=== PATIENT | male | born 1990 | race Caucasian/White ===

== ENCOUNTER 2016-12-01 18:51 | Emergency (ER) | payer OTHER ==
[~2016-12-01] VITALS: Ht 175.3 cm; Wt 90.9 kg
[~2016-12-01 18:51] MED LIST: CEPH500 PO; DSS100 PO; PERCT10 PO
[2016-12-01] MEDS ORDERED: IBUPROFEN 800 MG TABLET PO ONE (19:15)
[2016-12-01 20:44] VITALS: BP 120/81
== END 2016-12-01 20:47 | disposition home or self-care (01) ==
LOC: EMS 18:54
DX: S82.832A Other fracture of upper and lower end of left fibula, initial encounter for closed fracture (principal); F17.210 Nicotine dependence, cigarettes, uncomplicated; W01.0XXA Fall on same level from slipping, tripping and stumbling without subsequent striking against object, initial encounter; Y93.89 Activity, other specified; Y92.89 Other specified places as the place of occurrence of the external cause; Y99.8 Other external cause status
CPT/HCPCS: 99284

== ENCOUNTER 2017-01-25 13:07 | Emergency (ER) | payer OTHER ==
[~2017-01-25] VITALS: Ht 175.3 cm; Wt 100.0 kg
[2017-01-25 18:30] VITALS: BP 129/85
== END 2017-01-25 19:04 | disposition home or self-care (01) ==
LOC: EMS 13:09
DX: S82.62XA Displaced fracture of lateral malleolus of left fibula, initial encounter for closed fracture (principal); F10.129 Alcohol abuse with intoxication, unspecified; F17.210 Nicotine dependence, cigarettes, uncomplicated; W19.XXXA Unspecified fall, initial encounter; Y93.89 Activity, other specified; Y92.480 Sidewalk as the place of occurrence of the external cause; Y99.8 Other external cause status
CPT/HCPCS: 99284

== ENCOUNTER 2020-12-20 07:03 | Emergency (ER) | payer OTHER ==
[~2020-12-20] VITALS: Ht 175.3 cm; Wt 90.9 kg
[2020-12-20] MEDS ORDERED: IBUPROFEN 600 MG TABLET PO ONE (08:15)
[2020-12-20] MEDS ORDERED: DOXYCYCLINE HYCLATE 100 MG TABLET PO ONE (08:15)
[2020-12-20 08:22] VITALS: BP 149/83
== END 2020-12-20 08:30 | disposition home or self-care (01) ==
LOC: EMS 07:52
DX: L03.114 Cellulitis of left upper limb (principal); M79.89 Other specified soft tissue disorders; Z87.891 Personal history of nicotine dependence
CPT/HCPCS: 99283

== ENCOUNTER 2021-11-26 14:19 | Emergency (ER) | payer OTHER ==
[~2021-11-26] VITALS: Ht 172.7 cm; Wt 86.4 kg
[2021-11-26] MEDS ORDERED: PERTUSS(ACELL),DIPH,TET VAC/PF 0.5 ML SYRINGE IM. ONE (15:15)
[2021-11-26] MEDS ORDERED: BACITRACIN 0.9 GM PACKET OINTMENT TP ONE (15:15)
[2021-11-26 15:24] LABS: BASOPHILS % (AUTO) 0.6 % (0.0-2.0); EOSINOPHILS % (AUTO) 0.1 % (1.0-6.0); HEMATOCRIT 44.1 % (41-53); HEMOGLOBIN 14.8 g/dL (13.5-17.5); LYMPHOCYTES # (AUTO) 0.9 K/uL (1.0-4.8); LYMPHOCYTES % (AUTO) 12.8 % (22.0-44.0); MEAN CORPUSCULAR HEMOGLOBIN 29.8 pg (26.0-34.0); MEAN CORPUSCULAR HGB CONC 33.6 G/dL (31.0-37.0); MEAN CORPUSCULAR VOLUME 89 fL (80-100); MONOCYTES # (AUTO) 0.5 K/uL (0.1-1.0); MONOCYTES % (AUTO) 6.6 % (2.0-9.0); NEUTROPHILS # (AUTO) 5.9 K/uL (1.8-7.7); NEUTROPHILS % (AUTO) 79.9 % (40.0-70.0); RED BLOOD CELL COUNT(AUTO) 4.96 MIL/uL (4.50-5.90); RED CELL DISTRIBUTION WIDTH 14.9 % (11.5-14.5)
[2021-11-26] MEDS ORDERED: LORazepam 2 MG/ML VIAL IM ONE (15:30)
[2021-11-26] MEDS ORDERED: HALOPERIDOL LACTATE 5 MG/ML VIAL IM ONE (15:30)
[2021-11-26] MEDS ORDERED: DiphenhydrAMINE HCL 50 MG/ML VIAL IM ONE (15:30)
[2021-11-26 15:33] LABS: ANION GAP 10 mmol/L (8-16); CALCIUM, TOTAL 7.8 mg/dL (8.8-10.5); CARBON DIOXIDE 27 mmol/L (22-29); CHLORIDE 104 mmol/L (98-107); CREATININE 0.77 mg/dL (0.60-1.30); GLOMERULAR FILTR. RATE CALC > 60 mL/min (>60); GLUCOSE,RANDOM 121 mg/dL (70-110); POTASSIUM 3.6 mmol/L (3.5-5.1); SODIUM SERUM 141 mmol/L (136-145); UREA NITROGEN, BLOOD 11 mg/dL (7-18)
[2021-11-26 15:36] LABS: AMPHET/METH SCREEN,URINE NEGATIVE (NEGATIVE); BARBITURATE SCREEN, URINE NEGATIVE (NEGATIVE); BENZODIAZEPINES SCREEN,URINE NEGATIVE (NEGATIVE); CANNABINOID SCREEN,URINE NEGATIVE (NEGATIVE); COCAINE SCREEN,URINE NEGATIVE (NEGATIVE); METHADONE SCREEN, URINE NEGATIVE (NEGATIVE); OPIATE SCREEN,URINE NEGATIVE (NEGATIVE); PHENCYCLIDINE SCREEN,URINE NEGATIVE (NEGATIVE)
[2021-11-26 15:39] LABS: ALANINE AMINOTRANSFERASE 105 U/L (12-78); ALBUMIN 3.4 g/dL (3.4-5.0); ALKALINE PHOSPHATASE 73 U/L (46-116); ASPARTATE AMINOTRANSFERASE 309 U/L (15-37); BILIRUBIN,TOTAL 0.5 mg/dL (0.1-1.0)
[2021-11-26 15:45] LABS: PLATELET COUNT (AUTO) 87 K/uL (150-450)
[2021-11-26 18:30] LABS: COVID AG,FIA SOURCE NASOPHARYNGEAL
[2021-11-26] MEDS ORDERED: LORazepam 2 MG/ML VIAL IVP ONE (19:00)
[2021-11-27] VITALS: BP 118/65
[2021-11-27] MEDS ORDERED: CEPH-558 PO (01:00)
== END 2021-11-27 01:00 | disposition home or self-care (01) ==
LOC: EMS 14:21
DX: S02.2XXA Fracture of nasal bones, initial encounter for closed fracture (principal); G92.9 Unspecified toxic encephalopathy; R45.851 Suicidal ideations; K70.30 Alcoholic cirrhosis of liver without ascites; F10.129 Alcohol abuse with intoxication, unspecified; Y90.8 Blood alcohol level of 240 mg/100 ml or more; Z87.891 Personal history of nicotine dependence; Z20.822 Contact with and (suspected) exposure to COVID-19; W22.01XA Walked into wall, initial encounter; Y93.89 Activity, other specified; Y92.89 Other specified places as the place of occurrence of the external cause; Y99.8 Other external cause status
CPT/HCPCS: 36415; 70450; 70486; 80053; 80307; 85025; 87426; 90471; 90715; 96372; 96374; 99285; G0480; J1200; J1630; J2060

== ENCOUNTER 2022-11-25 10:46 | Emergency (ER) | payer OTHER ==
[~2022-11-25] VITALS: Ht 175.3 cm; Wt 88.6 kg
[~2022-11-25 10:46] MED LIST changes: -CEPH500 PO; -DSS100 PO; +PANT-31 PO; -PERCT10 PO
[2022-11-25 11:11] VITALS: BP 159/88
[2022-11-25] MEDS ORDERED: FLUORESCEIN SODIUM 1 MG STRIP OS ONE (12:15)
[2022-11-25] MEDS ORDERED: PROPARACAINE HCL 0.5% 15 ML OPHTHALMIC SOLUTION OS ONE (12:15)
[2022-11-25] MEDS ORDERED: ERYT3.5O8 OU (12:22)
[2022-11-25] MEDS ORDERED: IBUP-1492 PO (12:22)
== END 2022-11-25 12:36 | disposition home or self-care (01) ==
LOC: EMS 10:52
DX: S05.02XA Injury of conjunctiva and corneal abrasion without foreign body, left eye, initial encounter (principal); F17.210 Nicotine dependence, cigarettes, uncomplicated; Z98.890 Other specified postprocedural states; X58.XXXA Exposure to other specified factors, initial encounter; Y93.89 Activity, other specified; Y92.89 Other specified places as the place of occurrence of the external cause; Y99.8 Other external cause status
CPT/HCPCS: 99283

== ENCOUNTER 2023-02-01 09:01 | Inpatient (IN) | payer OTHER ==
[2023-02-01] VITALS (10 sets, daily range): BP systolic 98–126; BP diastolic 49–72; PULSE 125–170; RESP 19–25; TEMP 101; O2SAT 96–97
[~2023-02-01] VITALS: Ht 175.3 cm; Wt 74.8 kg
[~2023-02-01 09:01] MED LIST changes: +ERYT3.5O8 OU; +IBUP-1492 PO
[2023-02-01] MEDS ORDERED: LORazepam 2 MG/ML VIAL IVP ONE ×4 (09:15→14:15)
[2023-02-01] MEDS ORDERED: LevETIRAcetam 1,000 MG in DEXTROSE 5%-WATER 100 ML IV ONE (09:15)
[2023-02-01] MEDS ORDERED: BACITRACIN 0.9 GM PACKET OINTMENT TP ONE (09:15)
[2023-02-01] MEDS ORDERED: MAGNESIUM SULFATE 2 GM, MVI, ADULT NO.1 WITH VIT K 10 ML, THIAMINE 100 MG, FOLIC ACID 1... IV ONE ×5 (09:15)
[2023-02-01] MEDS ORDERED: LIDOCAINE 1% 10 ML VIAL SQ ONE (09:15)
[2023-02-01] MEDS ORDERED: SODIUM CHLORIDE 0.9% 1,000 ML IV ONE (09:15)
[2023-02-01] MEDS ORDERED: ONDANSETRON HCL 4 MG/2 ML VIAL IVP ONE (09:30)
[2023-02-01 09:31] LABS: BASOPHILS % (AUTO) 1.2 % (0.0-2.0); EOSINOPHILS % (AUTO) 0 % (1.0-6.0); HEMATOCRIT 40.2 % (41-53); HEMOGLOBIN 12.7 g/dL (13.5-17.5); LYMPHOCYTES # (AUTO) 1.5 K/uL (1.0-4.8); LYMPHOCYTES % (AUTO) 12.7 % (22.0-44.0); MEAN CORPUSCULAR HEMOGLOBIN 28.3 pg (26.0-34.0); MEAN CORPUSCULAR HGB CONC 31.6 G/dL (31.0-37.0); MEAN CORPUSCULAR VOLUME 90 fL (80-100); MONOCYTES # (AUTO) 0.9 K/uL (0.1-1.0); MONOCYTES % (AUTO) 7.8 % (2.0-9.0); NEUTROPHILS # (AUTO) 9.6 K/uL (1.8-7.7); NEUTROPHILS % (AUTO) 78.3 % (40.0-70.0); PLATELET COUNT (AUTO) 116 K/uL (150-450); RED BLOOD CELL COUNT(AUTO) 4.49 MIL/uL (4.50-5.90); RED CELL DISTRIBUTION WIDTH 24.6 % (11.5-14.5)
[2023-02-01 09:54] LABS: ANION GAP 29 mmol/L (8-16); CARBON DIOXIDE 14 mmol/L (22-29); CHLORIDE 96 mmol/L (98-107); CREATININE 1.32 mg/dL (0.60-1.30); GLOMERULAR FILTR. RATE CALC > 60 mL/min (>60); GLUCOSE,RANDOM 175 mg/dL (70-110); POTASSIUM 4.6 mmol/L (3.5-5.1); SODIUM SERUM 139 mmol/L (136-145)
[2023-02-01 09:58] LABS: ALANINE AMINOTRANSFERASE 143 U/L (12-78); ALBUMIN 4.1 g/dL (3.4-5.0); ALKALINE PHOSPHATASE 119 U/L (46-116); ASPARTATE AMINOTRANSFERASE 423 U/L (15-37); BILIRUBIN,TOTAL 0.9 mg/dL (0.1-1.0); LIPASE 426 U/L (73-393); TOTAL PROTEIN, SERUM 8.4 g/dL (6.4-8.2)
[2023-02-01 10:11] LABS: LACTIC ACID 22.3 mmol/L (0.4-2.0)
[2023-02-01] MEDS ORDERED: ROCURONIUM BROMIDE 10 MG/ML 5 ML VIAL ONE (10:33)
[2023-02-01] MEDS ORDERED: ETOMIDATE 2 MG/ML 10 ML VIAL IVP ONE (10:45)
[2023-02-01] MEDS ORDERED: ROCURONIUM BROMIDE 10 MG/ML 5 ML VIAL IVP ONE (10:45)
[2023-02-01] MEDS ORDERED: MIDAZOLAM HCL 2 MG/2 ML VIAL IVP ONE (11:00)
[2023-02-01] MEDS: PROPOFOL 1000 MG/ISO-OSM 100 ML IV PRN ×5 (11:01→23:09)
[2023-02-01] MEDS ORDERED: MethylPREDNISolone SOD SUCC 125 MG/2 ML VIAL IVP ONE (11:30)
[2023-02-01] MEDS ORDERED: DiphenhydrAMINE HCL 50 MG/ML VIAL IVP ONE (11:30)
[2023-02-01 11:58] LABS: APPEARANCE,URINE CLEAR (CLEAR); BILIRUBIN,URINE NEGATIVE (NEGATIVE); GLUCOSE, URINE (UA) NEGATIVE (NEGATIVE); KETONES,URINE NEGATIVE (NEGATIVE); LEUKOCYTE ESTERASE ,URINE NEGATIVE (NEGATIVE); NITRATE,URINE NEGATIVE (NEGATIVE); OCCULT BLOOD,URINE LARGE (NEGATIVE); PH,URINE 6.5 (5.0-8.0); PROTEIN,URINE 30-70 mg/dL (NEGATIVE); SPECIFIC GRAVITIY, URINE 1.017 (1.003-1.030); UROBILINOGEN,URINE <=1.0 mg/dL (<=1.0)
[2023-02-01] MEDS ORDERED: AMPICILLIN SODIUM 2 GM/NS 100 ML IV ONE ×2 (12:00)
[2023-02-01] MEDS ORDERED: DEXAMETHASONE SOD PHOS 4 MG/ML 5 ML VIAL IVP ONE ×2 (12:00)
[2023-02-01 12:05] LABS: AMPHET/METH SCREEN,URINE NEGATIVE (NEGATIVE); BARBITURATE SCREEN, URINE NEGATIVE (NEGATIVE); BENZODIAZEPINES SCREEN,URINE POSITIVE (NEGATIVE); CANNABINOID SCREEN,URINE NEGATIVE (NEGATIVE); COCAINE SCREEN,URINE NEGATIVE (NEGATIVE); METHADONE SCREEN, URINE NEGATIVE (NEGATIVE); OPIATE SCREEN,URINE NEGATIVE (NEGATIVE); PHENCYCLIDINE SCREEN,URINE NEGATIVE (NEGATIVE)
[2023-02-01 12:17] LABS: INR 0.9 (0.9-1.1); PROTHROMBIN TIME 9.9 SEC (9.4-11.6)
[2023-02-01 12:19] LABS: BACTERIA,URINE None Seen /HPF (None Seen); SQUAMOUS EPITHELIAL CELL,UR Few /LPF (None Seen); WBC,URINE None Seen /HPF (0-5)
[2023-02-01] MEDS ORDERED: VECURONIUM BROMIDE 10 MG/VIAL ONE (12:20)
[2023-02-01] MEDS ORDERED: VECURONIUM BROMIDE 10 MG/VIAL IVP ONE (12:30)
[2023-02-01] MEDS: DEXAMETHASONE SOD PHOS 4 MG/ML 5 ML VIAL IVP SCH ×2 (12:35→20:14)
[2023-02-01 12:41] LABS: D-DIMER 4.98 mg/L FEU (0.00-0.50)
[2023-02-01] MEDS ORDERED: SODIUM CHLORIDE 0.9% 500 ML IV ONE (12:42)
[2023-02-01] MEDS ORDERED: ACETAMINOPHEN 1000 MG/ISO-OSM 100 ML IV ONE (12:45)
[2023-02-01 13:17] LABS: ABG CARBOXYHEMOGLOBIN 0.3 % (0.0-1.5); ABG HCO3 24.7 mmol/L (22.0-26.0); ABG METHEMOGLOBIN 0.5 % (0.0-1.5); ABG OXYGEN CONTENT 18.6 mL/dL (15.0-23.0); ABG OXYGEN SATURATION 99.8 % (95.0-98.0); ABG PCO2 42 mmHg (35-45); ABG PH 7.395 (7.350-7.450); ABG TOTAL HEMOGLOBIN 12.3 G/dL (12.0-18.0); PO2, ARTERIAL BG 546.6 mmHg (92.0-100.0); SOURCE, BLOOD GAS ARTERIAL; TEMPERATURE, FAHRENHEIT, BG 101.8 FAHREN (96.0-98.6)
[2023-02-01 13:17] LABS: COVID AG,FIA SOURCE NASAL SWAB
[2023-02-01 13:18] LABS: ABG A-A DIFF O2 119.9 mmHg (10-20.0); O2 DEVICE,BLOOD GAS VENTILATOR (ROOM AIR); SITE, BLOOD GAS RT RADIAL; VT, ABG 450 ml
[2023-02-01 13:19] LABS: PEEP,BG 5 cm H2O; SPONTANEOUS VT, BG 487 ml
[2023-02-01] MEDS ORDERED: MIDAZOLAM HCL 100 MG in SODIUM CHLORIDE 0.9% 180 ML IV PRN (13:30)
[2023-02-01] MEDS ORDERED: VANCOMYCIN 1GM/WATER(PEG/NADA) 200 ML IV ONE (14:00)
[2023-02-01] MEDS ORDERED: PANTOPRAZOLE SODIUM 40 MG/VIAL IVP ONE (14:00)
[2023-02-01] MEDS ORDERED: SODIUM CHLORIDE 0.9% 100 ML ONE (14:24)
[2023-02-01] MEDS ORDERED: IOHEXOL 350 MG/ML 100 ML VIAL ONE ×2 (14:24)
[2023-02-01] MEDS ORDERED: PIPERACILLIN/TAZO 3.375 GM/D5W 50 ML IV ONE ×2 (15:00→22:00)
[2023-02-01] MEDS ORDERED: ETOMIDATE 2 MG/ML 10 ML VIAL IV ONE (18:22)
[2023-02-01] MEDS ORDERED: ROCURONIUM BROMIDE 10 MG/ML 5 ML VIAL IV ONE (18:22)
[2023-02-01] MEDS: FentaNYL CIT 1000MCG/0.9% NACL 100 ML IV PRN (18:28)
[2023-02-01] MEDS ORDERED: MORPHINE SULFATE 2 MG/ML SYRINGE IVP PRN (18:30)
[2023-02-01] MEDS ORDERED: IPRATROPIUM BROMIDE 0.5 MG/2.5 ML NEB SOLUTION NEB PRN (18:30)
[2023-02-01] MEDS ORDERED: MAGNESIUM HYDROXIDE SUSPENSION 30 ML UDCUP PO PRN (18:30)
[2023-02-01] MEDS ORDERED: ALBUTEROL SULFATE 2.5 MG/0.5 ML NEB SOLUTION NEB PRN (18:30)
[2023-02-01] MEDS ORDERED: ONDANSETRON HCL 4 MG/2 ML VIAL IVP PRN (18:30)
[2023-02-01] MEDS ORDERED: BISACODYL 10 MG RECTAL RECTAL SUPPOSITORY PR PRN (18:30)
[2023-02-01] MEDS ORDERED: ZOLPIDEM TARTRATE 5 MG TABLET PO PRN (18:30)
[2023-02-01] MEDS ORDERED: DIAZEPAM 5 MG/ML 2 ML SYRINGE IVP PRN (19:00)
[2023-02-01] MEDS: 1: MAGNESIUM SULFATE 2 GM, MVI, ADULT NO.1 WITH VIT K 10 ML, THIAMINE 100 MG, FOLIC ACID IV SCH ×5 (19:03)
[2023-02-01] MEDS ORDERED: AMPICILLIN SODIUM 2 GM/NS 100 ML IV SCH (20:00)
[2023-02-01] MEDS ORDERED: DOCUSATE SODIUM 100 MG CAPSULE PO SCH (21:00)
[2023-02-01] MEDS: ACETAMINOPHEN 325 MG TABLET PO PRN (21:30)
[2023-02-01] MEDS ORDERED: PIPERACILLIN/TAZO 3.375 GM/D5W 50 ML IV SCH (22:00)
[2023-02-01 22:03] LABS: ANION GAP 9 mmol/L (8-16); CALCIUM, TOTAL 8.4 mg/dL (8.8-10.5); CARBON DIOXIDE 28 mmol/L (22-29); CHLORIDE 100 mmol/L (98-107); CREATININE 0.87 mg/dL (0.60-1.30); GLOMERULAR FILTR. RATE CALC > 60 mL/min (>60); GLUCOSE,RANDOM 134 mg/dL (70-110); SODIUM SERUM 137 mmol/L (136-145)
[2023-02-01] MEDS: LevETIRAcetam 500 MG in DEXTROSE 5%-WATER 100 ML IV SCH (22:17)
[2023-02-02] VITALS (21 sets, daily range): BP systolic 101–129; BP diastolic 46–78; PULSE 91–127; RESP 16–25; TEMP 99.9–101.2; O2SAT 97–99
[2023-02-02] MEDS ORDERED: *CLINICAL-MEROPENEM DOSING CLINICAL ONE (00:30)
[2023-02-02] MEDS: MIDAZOLAM HCL 100 MG in SODIUM CHLORIDE 0.9% 180 ML IV PRN ×2 (00:46→11:33)
[2023-02-02] MEDS: PROPOFOL 1000 MG/ISO-OSM 100 ML IV PRN ×8 (01:25→22:18)
[2023-02-02] MEDS: MEROPENEM 1 GM in SODIUM CHLORIDE 0.9% 100 ML IV SCH ×3 (04:36→20:24)
[2023-02-02] MEDS ORDERED: DIAZEPAM 5 MG/ML 2 ML SYRINGE IVP PRN (07:00)
[2023-02-02 08:04] LABS: BASOPHILS % (AUTO) 0.3 % (0.0-2.0); EOSINOPHILS % (AUTO) 0 % (1.0-6.0); HEMATOCRIT 29.7 % (41-53); LYMPHOCYTES # (AUTO) 0.4 K/uL (1.0-4.8); LYMPHOCYTES % (AUTO) 4.6 % (22.0-44.0); MEAN CORPUSCULAR HEMOGLOBIN 29.4 pg (26.0-34.0); MEAN CORPUSCULAR HGB CONC 33.6 G/dL (31.0-37.0); MEAN CORPUSCULAR VOLUME 88 fL (80-100); MONOCYTES # (AUTO) 0.8 K/uL (0.1-1.0); MONOCYTES % (AUTO) 9.8 % (2.0-9.0); NEUTROPHILS # (AUTO) 6.7 K/uL (1.8-7.7); RED BLOOD CELL COUNT(AUTO) 3.38 MIL/uL (4.50-5.90)
[2023-02-02 08:05] LABS: NEUTROPHILS % (AUTO) 85.3 % (40.0-70.0)
[2023-02-02 08:06] LABS: PLATELET COUNT (AUTO) 100 K/uL (150-450)
[2023-02-02] MEDS: 1: MAGNESIUM SULFATE 2 GM, MVI, ADULT NO.1 WITH VIT K 10 ML, THIAMINE 100 MG, FOLIC ACID IV SCH ×10 (08:11→22:03)
[2023-02-02 08:12] LABS: ANION GAP 10 mmol/L (8-16); CARBON DIOXIDE 25 mmol/L (22-29); CHLORIDE 102 mmol/L (98-107); GLOMERULAR FILTR. RATE CALC > 60 mL/min (>60); GLUCOSE,RANDOM 104 mg/dL (70-110); POTASSIUM 3.7 mmol/L (3.5-5.1); SODIUM SERUM 137 mmol/L (136-145)
[2023-02-02 08:17] LABS: ALANINE AMINOTRANSFERASE 100 U/L (12-78); ALBUMIN 2.8 g/dL (3.4-5.0); ALKALINE PHOSPHATASE 75 U/L (46-116); ASPARTATE AMINOTRANSFERASE 254 U/L (15-37); TOTAL PROTEIN, SERUM 6.3 g/dL (6.4-8.2)
[2023-02-02 08:26] LABS: LACTIC ACID 0.6 mmol/L (0.4-2.0)
[2023-02-02] MEDS: PANTOPRAZOLE SODIUM 40 MG/VIAL IVP SCH (10:35)
[2023-02-02] MEDS: DIAZEPAM 5 MG/ML 2 ML SYRINGE IVP SCH ×4 (10:35→20:25)
[2023-02-02] MEDS: LevETIRAcetam 500 MG in DEXTROSE 5%-WATER 100 ML IV SCH ×2 (10:36→22:02)
[2023-02-02] MEDS ORDERED: SODIUM CHLORIDE 0.9% 250 ML IV ONE (10:49)
[2023-02-02] MEDS: FentaNYL CIT 1000MCG/0.9% NACL 100 ML IV PRN (15:55)
[2023-02-02] MEDS: DOCUSATE SODIUM 100 MG/10 ML LIQUID UDCUP NG SCH (20:24)
[2023-02-02] MEDS: ACETAMINOPHEN 325 MG TABLET PO PRN (20:43)
[2023-02-02] MEDS ORDERED: SODIUM CHLORIDE 0.9% 1,000 ML ONE (22:01)
[2023-02-03] VITALS (12 sets, daily range): BP systolic 109–133; BP diastolic 47–66; PULSE 71–99; RESP 16–20; TEMP 98.2–100.7; O2SAT 99–100
[2023-02-03] MEDS: MIDAZOLAM HCL 100 MG in SODIUM CHLORIDE 0.9% 180 ML IV PRN ×2 (00:52→13:45)
[2023-02-03] MEDS: PROPOFOL 1000 MG/ISO-OSM 100 ML IV PRN ×4 (02:28→20:13)
[2023-02-03] MEDS: FentaNYL CIT 1000MCG/0.9% NACL 100 ML IV PRN ×3 (02:28→19:06)
[2023-02-03] MEDS: MEROPENEM 1 GM in SODIUM CHLORIDE 0.9% 100 ML IV SCH ×3 (03:59→20:10)
[2023-02-03 05:33] LABS: BASOPHILS % (AUTO) 1.2 % (0.0-2.0); EOSINOPHILS % (AUTO) 0.9 % (1.0-6.0); HEMATOCRIT 26.4 % (41-53); HEMOGLOBIN 8.3 g/dL (13.5-17.5); LYMPHOCYTES # (AUTO) 0.8 K/uL (1.0-4.8); LYMPHOCYTES % (AUTO) 13.4 % (22.0-44.0); MEAN CORPUSCULAR HEMOGLOBIN 28.3 pg (26.0-34.0); MEAN CORPUSCULAR HGB CONC 31.4 G/dL (31.0-37.0); MEAN CORPUSCULAR VOLUME 90 fL (80-100); MONOCYTES # (AUTO) 0.6 K/uL (0.1-1.0); MONOCYTES % (AUTO) 9.7 % (2.0-9.0); NEUTROPHILS # (AUTO) 4.5 K/uL (1.8-7.7); NEUTROPHILS % (AUTO) 74.8 % (40.0-70.0); PLATELET COUNT (AUTO) 100 K/uL (150-450); RED BLOOD CELL COUNT(AUTO) 2.93 MIL/uL (4.50-5.90); RED CELL DISTRIBUTION WIDTH 23.8 % (11.5-14.5)
[2023-02-03 05:46] LABS: ALANINE AMINOTRANSFERASE 68 U/L (12-78); ALBUMIN 2.2 g/dL (3.4-5.0); ALKALINE PHOSPHATASE 73 U/L (46-116); ANION GAP 9 mmol/L (8-16); ASPARTATE AMINOTRANSFERASE 156 U/L (15-37); BILIRUBIN,TOTAL 0.9 mg/dL (0.1-1.0); CALCIUM, TOTAL 7.7 mg/dL (8.8-10.5); CARBON DIOXIDE 25 mmol/L (22-29); CHLORIDE 104 mmol/L (98-107); CREATININE 0.57 mg/dL (0.60-1.30); GLOMERULAR FILTR. RATE CALC > 60 mL/min (>60); GLUCOSE,RANDOM 83 mg/dL (70-110); POTASSIUM 3.5 mmol/L (3.5-5.1); SODIUM SERUM 138 mmol/L (136-145); TOTAL PROTEIN, SERUM 5.5 g/dL (6.4-8.2)
[2023-02-03] MEDS: PANTOPRAZOLE SODIUM 40 MG/VIAL IVP SCH (07:57)
[2023-02-03] MEDS: DOCUSATE SODIUM 100 MG/10 ML LIQUID UDCUP NG SCH ×2 (07:57→20:11)
[2023-02-03] MEDS: DIAZEPAM 5 MG/ML 2 ML SYRINGE IVP SCH ×4 (07:57→20:11)
[2023-02-03] MEDS: 1: MAGNESIUM SULFATE 2 GM, MVI, ADULT NO.1 WITH VIT K 10 ML, THIAMINE 100 MG, FOLIC ACID IV SCH ×5 (10:52)
[2023-02-03] MEDS: LevETIRAcetam 500 MG in DEXTROSE 5%-WATER 100 ML IV SCH ×2 (10:59→21:47)
[2023-02-03] MEDS: ACETAMINOPHEN 325 MG TABLET PO PRN (20:17)
[2023-02-04] VITALS (14 sets, daily range): BP systolic 118–128; BP diastolic 60–78; PULSE 16–91; RESP 16–20; TEMP 99.2–100.4; O2SAT 95–100
[2023-02-04] MEDS ORDERED: SODIUM CHLORIDE 0.9% 1,000 ML ONE (00:14)
[2023-02-04] MEDS: 1: MAGNESIUM SULFATE 2 GM, MVI, ADULT NO.1 WITH VIT K 10 ML, THIAMINE 100 MG, FOLIC ACID IV SCH ×10 (00:15→13:46)
[2023-02-04] MEDS: MIDAZOLAM HCL 100 MG in SODIUM CHLORIDE 0.9% 180 ML IV PRN ×3 (00:16→18:55)
[2023-02-04] MEDS: PROPOFOL 1000 MG/ISO-OSM 100 ML IV PRN ×9 (01:16→23:58)
[2023-02-04] MEDS: MEROPENEM 1 GM in SODIUM CHLORIDE 0.9% 100 ML IV SCH ×3 (03:28→20:36)
[2023-02-04] MEDS: FentaNYL CIT 1000MCG/0.9% NACL 100 ML IV PRN ×3 (03:30→22:19)
[2023-02-04 05:36] LABS: EOSINOPHILS % (AUTO) 1.5 % (1.0-6.0); HEMOGLOBIN 8.5 g/dL (13.5-17.5); LYMPHOCYTES # (AUTO) 0.7 K/uL (1.0-4.8); LYMPHOCYTES % (AUTO) 15.1 % (22.0-44.0); MEAN CORPUSCULAR HEMOGLOBIN 29.6 pg (26.0-34.0); MEAN CORPUSCULAR HGB CONC 32.8 G/dL (31.0-37.0); MEAN CORPUSCULAR VOLUME 90 fL (80-100); MONOCYTES # (AUTO) 0.6 K/uL (0.1-1.0); MONOCYTES % (AUTO) 11.9 % (2.0-9.0); NEUTROPHILS # (AUTO) 3.4 K/uL (1.8-7.7); NEUTROPHILS % (AUTO) 69.5 % (40.0-70.0); PLATELET COUNT (AUTO) 141 K/uL (150-450); RED BLOOD CELL COUNT(AUTO) 2.88 MIL/uL (4.50-5.90); RED CELL DISTRIBUTION WIDTH 23.5 % (11.5-14.5)
[2023-02-04 06:12] LABS: ALANINE AMINOTRANSFERASE 129 U/L (12-78); ALBUMIN 2.1 g/dL (3.4-5.0); ALKALINE PHOSPHATASE 118 U/L (46-116); ANION GAP 6 mmol/L (8-16); ASPARTATE AMINOTRANSFERASE 539 U/L (15-37); CALCIUM, TOTAL 7.8 mg/dL (8.8-10.5); CARBON DIOXIDE 26 mmol/L (22-29); CHLORIDE 101 mmol/L (98-107); CREATININE 0.47 mg/dL (0.60-1.30); GLOMERULAR FILTR. RATE CALC > 60 mL/min (>60); GLUCOSE,RANDOM 91 mg/dL (70-110); POTASSIUM 3.3 mmol/L (3.5-5.1); SODIUM SERUM 133 mmol/L (136-145); TOTAL PROTEIN, SERUM 5.5 g/dL (6.4-8.2)
[2023-02-04] MEDS: DOCUSATE SODIUM 100 MG/10 ML LIQUID UDCUP NG SCH ×2 (07:53→20:37)
[2023-02-04] MEDS: PANTOPRAZOLE SODIUM 40 MG/VIAL IVP SCH (07:53)
[2023-02-04] MEDS: DIAZEPAM 5 MG/ML 2 ML SYRINGE IVP SCH ×4 (07:54→20:36)
[2023-02-04] MEDS: LevETIRAcetam 500 MG in DEXTROSE 5%-WATER 100 ML IV SCH (11:06)
[2023-02-04] MEDS: DIAZEPAM 5 MG/ML 2 ML SYRINGE IVP PRN ×2 (12:00→17:49)
[2023-02-04] MEDS: ACETAMINOPHEN 325 MG TABLET PO PRN (20:40)
[2023-02-04] MEDS: LevETIRAcetam 1,000 MG in DEXTROSE 5%-WATER 100 ML IV SCH (21:41)
[2023-02-05] VITALS (14 sets, daily range): BP systolic 113–142; BP diastolic 64–93; PULSE 69–99; RESP 16–17; TEMP 99.2–100.1; O2SAT 98–100
[2023-02-05] MEDS: 1: MAGNESIUM SULFATE 2 GM, MVI, ADULT NO.1 WITH VIT K 10 ML, THIAMINE 100 MG, FOLIC ACID IV SCH ×10 (03:15→16:15)
[2023-02-05] MEDS: MEROPENEM 1 GM in SODIUM CHLORIDE 0.9% 100 ML IV SCH ×3 (03:15→19:34)
[2023-02-05] MEDS: FentaNYL CIT 1000MCG/0.9% NACL 100 ML IV PRN ×4 (03:25→19:34)
[2023-02-05] MEDS ORDERED: SODIUM CHLORIDE 0.9% 250 ML IV ONE (04:04)
[2023-02-05] MEDS: PROPOFOL 1000 MG/ISO-OSM 100 ML IV PRN ×6 (05:03→21:03)
[2023-02-05] MEDS: MIDAZOLAM HCL 100 MG in SODIUM CHLORIDE 0.9% 180 ML IV PRN ×2 (05:04→16:15)
[2023-02-05] MEDS ORDERED: DIAZEPAM 5 MG/ML 2 ML SYRINGE IVP PRN (07:00)
[2023-02-05 09:12] LABS: BASOPHILS % (AUTO) 2.3 % (0.0-2.0); EOSINOPHILS % (AUTO) 2.3 % (1.0-6.0); HEMATOCRIT 25.3 % (41-53); HEMOGLOBIN 8.2 g/dL (13.5-17.5); LYMPHOCYTES # (AUTO) 0.8 K/uL (1.0-4.8); LYMPHOCYTES % (AUTO) 18.1 % (22.0-44.0); MEAN CORPUSCULAR HEMOGLOBIN 28.7 pg (26.0-34.0); MEAN CORPUSCULAR HGB CONC 32.2 G/dL (31.0-37.0); MEAN CORPUSCULAR VOLUME 89 fL (80-100); MONOCYTES # (AUTO) 0.8 K/uL (0.1-1.0); MONOCYTES % (AUTO) 18.8 % (2.0-9.0); NEUTROPHILS # (AUTO) 2.5 K/uL (1.8-7.7); NEUTROPHILS % (AUTO) 58.5 % (40.0-70.0); PLATELET COUNT (AUTO) 219 K/uL (150-450); RED BLOOD CELL COUNT(AUTO) 2.84 MIL/uL (4.50-5.90)
[2023-02-05] MEDS: PANTOPRAZOLE SODIUM 40 MG/VIAL IVP SCH (09:15)
[2023-02-05] MEDS: DOCUSATE SODIUM 100 MG/10 ML LIQUID UDCUP NG SCH ×2 (09:15→20:25)
[2023-02-05] MEDS: LevETIRAcetam 1,000 MG in DEXTROSE 5%-WATER 100 ML IV SCH ×2 (09:15→20:25)
[2023-02-05 09:27] LABS: ALANINE AMINOTRANSFERASE 179 U/L (12-78); ALBUMIN 1.9 g/dL (3.4-5.0); ALKALINE PHOSPHATASE 164 U/L (46-116); ANION GAP 5 mmol/L (8-16); ASPARTATE AMINOTRANSFERASE 665 U/L (15-37); BILIRUBIN,TOTAL 1.4 mg/dL (0.1-1.0); CALCIUM, TOTAL 7.7 mg/dL (8.8-10.5); CARBON DIOXIDE 27 mmol/L (22-29); CHLORIDE 104 mmol/L (98-107); CREATININE 0.42 mg/dL (0.60-1.30); GLOMERULAR FILTR. RATE CALC > 60 mL/min (>60); GLUCOSE,RANDOM 97 mg/dL (70-110); POTASSIUM 3.3 mmol/L (3.5-5.1); SODIUM SERUM 136 mmol/L (136-145); TOTAL PROTEIN, SERUM 5.6 g/dL (6.4-8.2)
[2023-02-05] MEDS ORDERED: POTASSIUM CHL 10 MEQ/WATER 50 ML IV ONE (13:00)
[2023-02-05] MEDS: DEXAMETHASONE SOD PHOS 4 MG/ML VIAL IVP SCH (17:30)
[2023-02-06] VITALS (14 sets, daily range): BP systolic 107–117; BP diastolic 58–75; PULSE 67–98; RESP 16; TEMP 99.6–100.2; O2SAT 98–100
[2023-02-06] MEDS: PROPOFOL 1000 MG/ISO-OSM 100 ML IV PRN ×7 (00:01→20:12)
[2023-02-06] MEDS: FentaNYL CIT 1000MCG/0.9% NACL 100 ML IV PRN ×5 (00:01→20:13)
[2023-02-06] MEDS: DEXAMETHASONE SOD PHOS 4 MG/ML VIAL IVP SCH ×5 (00:03→23:33)
[2023-02-06] MEDS: MIDAZOLAM HCL 100 MG in SODIUM CHLORIDE 0.9% 180 ML IV PRN ×2 (01:53→12:36)
[2023-02-06] MEDS: MEROPENEM 1 GM in SODIUM CHLORIDE 0.9% 100 ML IV SCH ×3 (04:31→20:14)
[2023-02-06] MEDS: 1: MAGNESIUM SULFATE 2 GM, MVI, ADULT NO.1 WITH VIT K 10 ML, THIAMINE 100 MG, FOLIC ACID IV SCH ×10 (05:28→18:43)
[2023-02-06 07:32] LABS: ANION GAP 8 mmol/L (8-16); CARBON DIOXIDE 29 mmol/L (22-29); CHLORIDE 102 mmol/L (98-107); CREATININE 0.44 mg/dL (0.60-1.30); GLOMERULAR FILTR. RATE CALC > 60 mL/min (>60); GLUCOSE,RANDOM 131 mg/dL (70-110); POTASSIUM 4.3 mmol/L (3.5-5.1); SODIUM SERUM 139 mmol/L (136-145)
[2023-02-06 07:38] LABS: ALANINE AMINOTRANSFERASE 175 U/L (12-78); ALKALINE PHOSPHATASE 183 U/L (46-116); ASPARTATE AMINOTRANSFERASE 374 U/L (15-37); BILIRUBIN,TOTAL 1.1 mg/dL (0.1-1.0)
[2023-02-06 08:12] LABS: BASOPHILS % (AUTO) 0.6 % (0.0-2.0); EOSINOPHILS % (AUTO) 0 % (1.0-6.0); HEMATOCRIT 28.6 % (41-53); HEMOGLOBIN 9.5 g/dL (13.5-17.5); LYMPHOCYTES # (AUTO) 0.4 K/uL (1.0-4.8); LYMPHOCYTES % (AUTO) 6.9 % (22.0-44.0); MEAN CORPUSCULAR HEMOGLOBIN 29.9 pg (26.0-34.0); MEAN CORPUSCULAR HGB CONC 33.2 G/dL (31.0-37.0); MEAN CORPUSCULAR VOLUME 90 fL (80-100); MONOCYTES # (AUTO) 0.5 K/uL (0.1-1.0); MONOCYTES % (AUTO) 9.1 % (2.0-9.0); NEUTROPHILS # (AUTO) 4.2 K/uL (1.8-7.7); NEUTROPHILS % (AUTO) 83.4 % (40.0-70.0); PLATELET COUNT (AUTO) 318 K/uL (150-450); RED BLOOD CELL COUNT(AUTO) 3.18 MIL/uL (4.50-5.90)
[2023-02-06 08:30] LABS: INR 0.9 (0.9-1.1); PROTHROMBIN TIME 9.8 SEC (9.4-11.6)
[2023-02-06] MEDS: LevETIRAcetam 1,000 MG in DEXTROSE 5%-WATER 100 ML IV SCH ×2 (09:39→20:13)
[2023-02-06] MEDS: DOCUSATE SODIUM 100 MG/10 ML LIQUID UDCUP NG SCH ×2 (09:39→20:13)
[2023-02-06] MEDS: PANTOPRAZOLE SODIUM 40 MG/VIAL IVP SCH (09:40)
[2023-02-07] VITALS (12 sets, daily range): BP systolic 107–169; BP diastolic 64–83; PULSE 58–92; RESP 16; TEMP 98.8–99.8; O2SAT 98–100
[2023-02-07] MEDS: MIDAZOLAM HCL 100 MG in SODIUM CHLORIDE 0.9% 180 ML IV PRN ×3 (00:40→21:00)
[2023-02-07] MEDS: PROPOFOL 1000 MG/ISO-OSM 100 ML IV PRN ×7 (01:42→21:29)
[2023-02-07] MEDS: FentaNYL CIT 1000MCG/0.9% NACL 100 ML IV PRN ×5 (01:44→23:25)
[2023-02-07] MEDS: MEROPENEM 1 GM in SODIUM CHLORIDE 0.9% 100 ML IV SCH ×3 (04:10→20:06)
[2023-02-07] MEDS: DEXAMETHASONE SOD PHOS 4 MG/ML VIAL IVP SCH ×4 (05:53→23:24)
[2023-02-07] MEDS: 1: MAGNESIUM SULFATE 2 GM, MVI, ADULT NO.1 WITH VIT K 10 ML, THIAMINE 100 MG, FOLIC ACID IV SCH ×10 (09:15→21:28)
[2023-02-07] MEDS: LevETIRAcetam 1,000 MG in DEXTROSE 5%-WATER 100 ML IV SCH ×2 (09:48→20:59)
[2023-02-07] MEDS: PANTOPRAZOLE SODIUM 40 MG/VIAL IVP SCH (09:48)
[2023-02-07] MEDS: DOCUSATE SODIUM 100 MG/10 ML LIQUID UDCUP NG SCH ×2 (09:48→20:06)
[2023-02-07 19:19] LABS: ABG A-A DIFF O2 61.2 mmHg (10-20.0); ABG BASE EXCESS 4.3 mmol/L (-2.0-3.0); ABG CARBOXYHEMOGLOBIN 0.3 % (0.0-1.5); ABG HCO3 27.9 mmol/L (22.0-26.0); ABG METHEMOGLOBIN 0.3 % (0.0-1.5); ABG OXYGEN CONTENT 12.9 mL/dL (15.0-23.0); ABG OXYGEN SATURATION 97.1 % (95.0-98.0); ABG OXYHEMOGLOBIN 96.5 % (94.0-100.0); ABG PCO2 46 mmHg (35-45); ABG PH 7.419 (7.350-7.450); ABG TOTAL HEMOGLOBIN 9.4 G/dL (12.0-18.0); O2 DEVICE,BLOOD GAS VENT (ROOM AIR); PO2, ARTERIAL BG 98.9 mmHg (92.0-100.0); SITE, BLOOD GAS RT RADIAL; SOURCE, BLOOD GAS ARTERIAL; TEMPERATURE, FAHRENHEIT, BG 99.1 FAHREN (96.0-98.6)
[2023-02-07 19:20] LABS: PEEP,BG 5 cm H2O; VT, ABG 450 ml
[2023-02-08] VITALS (13 sets, daily range): BP systolic 110–119; BP diastolic 59–74; PULSE 56–73; RESP 16; TEMP 98.2–98.9; O2SAT 99
[2023-02-08] MEDS: PROPOFOL 1000 MG/ISO-OSM 100 ML IV PRN ×9 (00:23→23:45)
[2023-02-08] MEDS: MEROPENEM 1 GM in SODIUM CHLORIDE 0.9% 100 ML IV SCH ×3 (04:10→20:35)
[2023-02-08] MEDS: DEXAMETHASONE SOD PHOS 4 MG/ML VIAL IVP SCH ×4 (05:25→23:44)
[2023-02-08] MEDS: FentaNYL CIT 1000MCG/0.9% NACL 100 ML IV PRN ×4 (05:25→21:21)
[2023-02-08] MEDS ORDERED: SODIUM CHLORIDE 0.9% 250 ML IV ONE (09:00)
[2023-02-08] MEDS: DOCUSATE SODIUM 100 MG/10 ML LIQUID UDCUP NG SCH ×2 (09:07→21:22)
[2023-02-08] MEDS: PANTOPRAZOLE SODIUM 40 MG/VIAL IVP SCH (09:08)
[2023-02-08] MEDS: MIDAZOLAM HCL 100 MG in SODIUM CHLORIDE 0.9% 180 ML IV PRN ×2 (09:09→18:57)
[2023-02-08] MEDS: LevETIRAcetam 1,000 MG in DEXTROSE 5%-WATER 100 ML IV SCH ×2 (09:10→20:35)
[2023-02-08 09:13] LABS: BASOPHILS % (AUTO) 0.7 % (0.0-2.0); EOSINOPHILS % (AUTO) 0 % (1.0-6.0); HEMATOCRIT 26.6 % (41-53); HEMOGLOBIN 8.7 g/dL (13.5-17.5); LYMPHOCYTES # (AUTO) 0.5 K/uL (1.0-4.8); LYMPHOCYTES % (AUTO) 11.2 % (22.0-44.0); MEAN CORPUSCULAR HEMOGLOBIN 29.4 pg (26.0-34.0); MEAN CORPUSCULAR HGB CONC 32.6 G/dL (31.0-37.0); MEAN CORPUSCULAR VOLUME 90 fL (80-100); MONOCYTES # (AUTO) 0.8 K/uL (0.1-1.0); MONOCYTES % (AUTO) 16.1 % (2.0-9.0); NEUTROPHILS # (AUTO) 3.4 K/uL (1.8-7.7); PLATELET COUNT (AUTO) 505 K/uL (150-450); RED BLOOD CELL COUNT(AUTO) 2.94 MIL/uL (4.50-5.90); RED CELL DISTRIBUTION WIDTH 23.9 % (11.5-14.5)
[2023-02-08 09:33] LABS: ALANINE AMINOTRANSFERASE 93 U/L (12-78); ALBUMIN 1.9 g/dL (3.4-5.0); ALKALINE PHOSPHATASE 129 U/L (46-116); ANION GAP 3 mmol/L (8-16); ASPARTATE AMINOTRANSFERASE 107 U/L (15-37); BILIRUBIN,TOTAL 0.6 mg/dL (0.1-1.0); CALCIUM, TOTAL 7.9 mg/dL (8.8-10.5); CARBON DIOXIDE 30 mmol/L (22-29); CHLORIDE 107 mmol/L (98-107); CREATININE 0.34 mg/dL (0.60-1.30); GLOMERULAR FILTR. RATE CALC > 60 mL/min (>60); GLUCOSE,RANDOM 138 mg/dL (70-110); POTASSIUM 4.2 mmol/L (3.5-5.1); SODIUM SERUM 140 mmol/L (136-145); TOTAL PROTEIN, SERUM 5.7 g/dL (6.4-8.2)
[2023-02-08] MEDS ORDERED: SODIUM CHLORIDE 0.9% 1,000 ML ONE (12:09)
[2023-02-08] MEDS: 1: MAGNESIUM SULFATE 2 GM, MVI, ADULT NO.1 WITH VIT K 10 ML, THIAMINE 100 MG, FOLIC ACID IV SCH ×5 (12:10)
[2023-02-08 16:29] LABS: LIPASE 63 U/L (16-77)
[2023-02-08] MEDS: METOCLOPRAMIDE HCL 5 MG/ML 2 ML VIAL IVP SCH (23:44)
[2023-02-09] VITALS (14 sets, daily range): BP systolic 111–140; BP diastolic 61–84; PULSE 60–100; RESP 16–25; TEMP 98.4–100.1; O2SAT 93–100
[2023-02-09] MEDS: 1: MAGNESIUM SULFATE 2 GM, MVI, ADULT NO.1 WITH VIT K 10 ML, THIAMINE 100 MG, FOLIC ACID IV SCH ×10 (00:49→14:05)
[2023-02-09] MEDS: PROPOFOL 1000 MG/ISO-OSM 100 ML IV PRN ×7 (02:57→22:28)
[2023-02-09] MEDS: FentaNYL CIT 1000MCG/0.9% NACL 100 ML IV PRN ×4 (02:58→18:59)
[2023-02-09] MEDS: MEROPENEM 1 GM in SODIUM CHLORIDE 0.9% 100 ML IV SCH ×3 (03:00→20:09)
[2023-02-09] MEDS: MIDAZOLAM HCL 100 MG in SODIUM CHLORIDE 0.9% 180 ML IV PRN ×2 (03:33→15:35)
[2023-02-09] MEDS: DEXAMETHASONE SOD PHOS 4 MG/ML VIAL IVP SCH ×4 (05:14→23:51)
[2023-02-09 06:46] LABS: BASOPHILS % (AUTO) 0.5 % (0.0-2.0); EOSINOPHILS % (AUTO) 0 % (1.0-6.0); HEMATOCRIT 29.8 % (41-53); HEMOGLOBIN 9.5 g/dL (13.5-17.5); LYMPHOCYTES # (AUTO) 0.8 K/uL (1.0-4.8); LYMPHOCYTES % (AUTO) 9.5 % (22.0-44.0); MEAN CORPUSCULAR HEMOGLOBIN 29.2 pg (26.0-34.0); MEAN CORPUSCULAR HGB CONC 31.8 G/dL (31.0-37.0); MEAN CORPUSCULAR VOLUME 92 fL (80-100); MONOCYTES # (AUTO) 1.7 K/uL (0.1-1.0); MONOCYTES % (AUTO) 20.9 % (2.0-9.0); NEUTROPHILS # (AUTO) 5.7 K/uL (1.8-7.7); NEUTROPHILS % (AUTO) 69.1 % (40.0-70.0); PLATELET COUNT (AUTO) 552 K/uL (150-450); RED BLOOD CELL COUNT(AUTO) 3.25 MIL/uL (4.50-5.90); RED CELL DISTRIBUTION WIDTH 24.1 % (11.5-14.5)
[2023-02-09 06:50] LABS: ANION GAP 5 mmol/L (8-16); CALCIUM, TOTAL 8.3 mg/dL (8.8-10.5); CARBON DIOXIDE 28 mmol/L (22-29); CHLORIDE 106 mmol/L (98-107); CREATININE 0.45 mg/dL (0.60-1.30); GLOMERULAR FILTR. RATE CALC > 60 mL/min (>60); GLUCOSE,RANDOM 136 mg/dL (70-110); POTASSIUM 4.2 mmol/L (3.5-5.1); SODIUM SERUM 139 mmol/L (136-145)
[2023-02-09] MEDS: DOCUSATE SODIUM 100 MG/10 ML LIQUID UDCUP NG SCH ×2 (08:37→20:11)
[2023-02-09] MEDS: LevETIRAcetam 1,000 MG in DEXTROSE 5%-WATER 100 ML IV SCH ×2 (08:38→20:16)
[2023-02-09] MEDS: PANTOPRAZOLE SODIUM 40 MG/VIAL IVP SCH (08:38)
[2023-02-09] MEDS: METOCLOPRAMIDE HCL 5 MG/ML 2 ML VIAL IVP SCH ×3 (08:38→23:50)
[2023-02-09] MEDS ORDERED: SODIUM CHLORIDE 0.9% 1,000 ML ONE (14:01)
[2023-02-09] MEDS: DEXMEDETOMIDINE HCL 400 MCG in SODIUM CHLORIDE 0.9% 96 ML IV PRN (17:12)
[2023-02-09] MEDS: ACETAMINOPHEN 325 MG TABLET PO PRN (20:12)
[2023-02-10] VITALS (15 sets, daily range): BP systolic 106–137; BP diastolic 54–80; PULSE 55–89; RESP 16–22; TEMP 98.4–99.8; O2SAT 95–98
[2023-02-10] MEDS: FentaNYL CIT 1000MCG/0.9% NACL 100 ML IV PRN ×5 (00:46→21:57)
[2023-02-10] MEDS: MIDAZOLAM HCL 100 MG in SODIUM CHLORIDE 0.9% 180 ML IV PRN ×3 (00:47→22:42)
[2023-02-10] MEDS: PROPOFOL 1000 MG/ISO-OSM 100 ML IV PRN ×9 (00:48→21:51)
[2023-02-10] MEDS: MEROPENEM 1 GM in SODIUM CHLORIDE 0.9% 100 ML IV SCH ×3 (03:24→20:36)
[2023-02-10] MEDS: 1: MAGNESIUM SULFATE 2 GM, MVI, ADULT NO.1 WITH VIT K 10 ML, THIAMINE 100 MG, FOLIC ACID IV SCH ×10 (03:27→18:53)
[2023-02-10] MEDS ORDERED: SODIUM CHLORIDE 0.9% 250 ML IV ONE (03:46)
[2023-02-10 05:30] LABS: BASOPHILS % (AUTO) 0.4 % (0.0-2.0); EOSINOPHILS % (AUTO) 0 % (1.0-6.0); HEMATOCRIT 27.8 % (41-53); HEMOGLOBIN 9.3 g/dL (13.5-17.5); LYMPHOCYTES # (AUTO) 0.9 K/uL (1.0-4.8); LYMPHOCYTES % (AUTO) 12.9 % (22.0-44.0); MEAN CORPUSCULAR HEMOGLOBIN 30.2 pg (26.0-34.0); MEAN CORPUSCULAR HGB CONC 33.5 G/dL (31.0-37.0); MEAN CORPUSCULAR VOLUME 90 fL (80-100); MONOCYTES # (AUTO) 1.1 K/uL (0.1-1.0); MONOCYTES % (AUTO) 16.5 % (2.0-9.0); NEUTROPHILS # (AUTO) 4.7 K/uL (1.8-7.7); NEUTROPHILS % (AUTO) 70.2 % (40.0-70.0); PLATELET COUNT (AUTO) 633 K/uL (150-450); RED BLOOD CELL COUNT(AUTO) 3.08 MIL/uL (4.50-5.90); RED CELL DISTRIBUTION WIDTH 23.9 % (11.5-14.5)
[2023-02-10] MEDS: DEXAMETHASONE SOD PHOS 4 MG/ML VIAL IVP SCH ×3 (05:37→18:53)
[2023-02-10 06:13] LABS: ALANINE AMINOTRANSFERASE 76 U/L (12-78); ALKALINE PHOSPHATASE 116 U/L (46-116); ANION GAP 8 mmol/L (8-16); ASPARTATE AMINOTRANSFERASE 85 U/L (15-37); BILIRUBIN,TOTAL 0.5 mg/dL (0.1-1.0); CALCIUM, TOTAL 8.2 mg/dL (8.8-10.5); CARBON DIOXIDE 28 mmol/L (22-29); CHLORIDE 105 mmol/L (98-107); CREATININE 0.38 mg/dL (0.60-1.30); GLOMERULAR FILTR. RATE CALC > 60 mL/min (>60); GLUCOSE,RANDOM 114 mg/dL (70-110); SODIUM SERUM 141 mmol/L (136-145); TOTAL PROTEIN, SERUM 5.6 g/dL (6.4-8.2)
[2023-02-10] MEDS: DOCUSATE SODIUM 100 MG/10 ML LIQUID UDCUP NG SCH ×2 (07:56→20:36)
[2023-02-10] MEDS: METOCLOPRAMIDE HCL 5 MG/ML 2 ML VIAL IVP SCH ×2 (07:57→15:45)
[2023-02-10] MEDS: PANTOPRAZOLE SODIUM 40 MG/VIAL IVP SCH (07:57)
[2023-02-10] MEDS: LevETIRAcetam 1,000 MG in DEXTROSE 5%-WATER 100 ML IV SCH ×2 (08:37→20:36)
[2023-02-10] MEDS: DEXMEDETOMIDINE HCL 400 MCG in SODIUM CHLORIDE 0.9% 96 ML IV PRN (12:06)
[2023-02-10] MEDS ORDERED: SODIUM CHLORIDE 0.9% 1,000 ML ONE (18:52)
[2023-02-10] MEDS: ACETAMINOPHEN 325 MG TABLET PO PRN (21:55)
[2023-02-11] VITALS (13 sets, daily range): BP systolic 126–137; BP diastolic 74–90; PULSE 50–87; RESP 16–26; TEMP 98.4–100; O2SAT 96–99
[2023-02-11] MEDS: DEXAMETHASONE SOD PHOS 4 MG/ML VIAL IVP SCH ×5 (00:12→23:39)
[2023-02-11] MEDS: METOCLOPRAMIDE HCL 5 MG/ML 2 ML VIAL IVP SCH ×4 (00:13→23:38)
[2023-02-11] MEDS: PROPOFOL 1000 MG/ISO-OSM 100 ML IV PRN ×8 (01:32→23:38)
[2023-02-11] MEDS: MEROPENEM 1 GM in SODIUM CHLORIDE 0.9% 100 ML IV SCH ×3 (03:40→20:53)
[2023-02-11] MEDS: FentaNYL CIT 1000MCG/0.9% NACL 100 ML IV PRN ×5 (03:41→23:38)
[2023-02-11] MEDS: ACETAMINOPHEN 325 MG TABLET PO PRN ×2 (06:14→09:23)
[2023-02-11] MEDS: 1: MAGNESIUM SULFATE 2 GM, MVI, ADULT NO.1 WITH VIT K 10 ML, THIAMINE 100 MG, FOLIC ACID IV SCH ×10 (07:21→20:55)
[2023-02-11 07:43] LABS: BASOPHILS % (AUTO) 0.7 % (0.0-2.0); EOSINOPHILS % (AUTO) 0 % (1.0-6.0); HEMATOCRIT 30.3 % (41-53); HEMOGLOBIN 9.7 g/dL (13.5-17.5); MEAN CORPUSCULAR HGB CONC 32.1 G/dL (31.0-37.0); MEAN CORPUSCULAR VOLUME 91 fL (80-100); MONOCYTES % (AUTO) 12.5 % (2.0-9.0); NEUTROPHILS # (AUTO) 5.8 K/uL (1.8-7.7); NEUTROPHILS % (AUTO) 73.8 % (40.0-70.0); PLATELET COUNT (AUTO) 666 K/uL (150-450); RED BLOOD CELL COUNT(AUTO) 3.35 MIL/uL (4.50-5.90); RED CELL DISTRIBUTION WIDTH 23.7 % (11.5-14.5)
[2023-02-11 07:57] LABS: ALANINE AMINOTRANSFERASE 77 U/L (12-78); ALKALINE PHOSPHATASE 111 U/L (46-116); ANION GAP 2 mmol/L (8-16); ASPARTATE AMINOTRANSFERASE 79 U/L (15-37); BILIRUBIN,TOTAL 0.4 mg/dL (0.1-1.0); CALCIUM, TOTAL 8.2 mg/dL (8.8-10.5); CARBON DIOXIDE 32 mmol/L (22-29); CHLORIDE 105 mmol/L (98-107); CREATININE 0.41 mg/dL (0.60-1.30); GLOMERULAR FILTR. RATE CALC > 60 mL/min (>60); GLUCOSE,RANDOM 125 mg/dL (70-110); POTASSIUM 4.1 mmol/L (3.5-5.1); SODIUM SERUM 139 mmol/L (136-145); TOTAL PROTEIN, SERUM 5.8 g/dL (6.4-8.2)
[2023-02-11] MEDS: PANTOPRAZOLE SODIUM 40 MG/VIAL IVP SCH (08:15)
[2023-02-11] MEDS: DOCUSATE SODIUM 100 MG/10 ML LIQUID UDCUP NG SCH ×2 (08:15→20:55)
[2023-02-11] MEDS: DEXMEDETOMIDINE HCL 400 MCG in SODIUM CHLORIDE 0.9% 96 ML IV PRN ×2 (08:19→17:56)
[2023-02-11] MEDS: MIDAZOLAM HCL 100 MG in SODIUM CHLORIDE 0.9% 180 ML IV PRN ×2 (08:21→20:44)
[2023-02-11] MEDS: LevETIRAcetam 1,000 MG in DEXTROSE 5%-WATER 100 ML IV SCH ×2 (08:57→20:54)
[2023-02-11] MEDS ORDERED: SODIUM CHLORIDE 0.9% 1,000 ML ONE (20:51)
[2023-02-12] VITALS (14 sets, daily range): BP systolic 84–142; BP diastolic 59–94; PULSE 52–86; RESP 16–24; TEMP 96.9–100.5; O2SAT 96–98
[2023-02-12] MEDS: PROPOFOL 1000 MG/ISO-OSM 100 ML IV PRN ×7 (02:31→22:07)
[2023-02-12] MEDS: DEXMEDETOMIDINE HCL 400 MCG in SODIUM CHLORIDE 0.9% 96 ML IV PRN ×4 (02:31→22:06)
[2023-02-12] MEDS: MEROPENEM 1 GM in SODIUM CHLORIDE 0.9% 100 ML IV SCH ×3 (04:14→20:35)
[2023-02-12] MEDS: FentaNYL CIT 1000MCG/0.9% NACL 100 ML IV PRN ×4 (04:47→20:36)
[2023-02-12] MEDS: DEXAMETHASONE SOD PHOS 4 MG/ML VIAL IVP SCH ×4 (05:38→23:12)
[2023-02-12] MEDS: MIDAZOLAM HCL 100 MG in SODIUM CHLORIDE 0.9% 180 ML IV PRN ×2 (05:43→17:03)
[2023-02-12 06:22] LABS: BASOPHILS % (AUTO) 0.3 % (0.0-2.0); EOSINOPHILS % (AUTO) 0 % (1.0-6.0); HEMATOCRIT 29.7 % (41-53); HEMOGLOBIN 9.7 g/dL (13.5-17.5); MEAN CORPUSCULAR HEMOGLOBIN 29.7 pg (26.0-34.0); MEAN CORPUSCULAR HGB CONC 32.7 G/dL (31.0-37.0); MEAN CORPUSCULAR VOLUME 91 fL (80-100); MONOCYTES # (AUTO) 0.9 K/uL (0.1-1.0); MONOCYTES % (AUTO) 7.5 % (2.0-9.0); NEUTROPHILS # (AUTO) 9.4 K/uL (1.8-7.7); NEUTROPHILS % (AUTO) 83.2 % (40.0-70.0); PLATELET COUNT (AUTO) 663 K/uL (150-450); RED BLOOD CELL COUNT(AUTO) 3.28 MIL/uL (4.50-5.90)
[2023-02-12 06:37] LABS: ALANINE AMINOTRANSFERASE 80 U/L (12-78); ALKALINE PHOSPHATASE 103 U/L (46-116); ANION GAP 6 mmol/L (8-16); ASPARTATE AMINOTRANSFERASE 82 U/L (15-37); BILIRUBIN,TOTAL 0.4 mg/dL (0.1-1.0); CALCIUM, TOTAL 8.5 mg/dL (8.8-10.5); CARBON DIOXIDE 31 mmol/L (22-29); CHLORIDE 104 mmol/L (98-107); CREATININE 0.36 mg/dL (0.60-1.30); GLOMERULAR FILTR. RATE CALC > 60 mL/min (>60); GLUCOSE,RANDOM 119 mg/dL (70-110); POTASSIUM 3.9 mmol/L (3.5-5.1); SODIUM SERUM 141 mmol/L (136-145); TOTAL PROTEIN, SERUM 5.7 g/dL (6.4-8.2)
[2023-02-12] MEDS: DOCUSATE SODIUM 100 MG/10 ML LIQUID UDCUP NG SCH ×2 (08:57→20:37)
[2023-02-12] MEDS: 1: MAGNESIUM SULFATE 2 GM, MVI, ADULT NO.1 WITH VIT K 10 ML, THIAMINE 100 MG, FOLIC ACID IV SCH ×10 (08:57→23:12)
[2023-02-12] MEDS: PANTOPRAZOLE SODIUM 40 MG/VIAL IVP SCH (08:58)
[2023-02-12] MEDS: METOCLOPRAMIDE HCL 5 MG/ML 2 ML VIAL IVP SCH ×3 (09:01→23:12)
[2023-02-12] MEDS: LevETIRAcetam 1,000 MG in DEXTROSE 5%-WATER 100 ML IV SCH ×2 (10:03→20:35)
[2023-02-12] MEDS ORDERED: SODIUM CHLORIDE 0.9% 250 ML IV ONE (20:40)
[2023-02-13] VITALS (14 sets, daily range): BP systolic 123–145; BP diastolic 50–95; PULSE 53–92; RESP 15–25; TEMP 99.4–100.6; O2SAT 96–99
[2023-02-13] MEDS: PROPOFOL 1000 MG/ISO-OSM 100 ML IV PRN ×8 (02:51→22:45)
[2023-02-13] MEDS: MEROPENEM 1 GM in SODIUM CHLORIDE 0.9% 100 ML IV SCH ×3 (03:20→19:31)
[2023-02-13] MEDS: MIDAZOLAM HCL 100 MG in SODIUM CHLORIDE 0.9% 180 ML IV PRN ×3 (03:23→19:32)
[2023-02-13] MEDS: DEXAMETHASONE SOD PHOS 4 MG/ML VIAL IVP SCH ×4 (05:23→23:38)
[2023-02-13] MEDS: DEXMEDETOMIDINE HCL 400 MCG in SODIUM CHLORIDE 0.9% 96 ML IV PRN ×4 (05:25→21:59)
[2023-02-13] MEDS: PANTOPRAZOLE SODIUM 40 MG/VIAL IVP SCH (08:35)
[2023-02-13] MEDS: DOCUSATE SODIUM 100 MG/10 ML LIQUID UDCUP NG SCH ×2 (08:35→21:10)
[2023-02-13] MEDS: ACETAMINOPHEN 325 MG TABLET PO PRN (08:35)
[2023-02-13] MEDS: METOCLOPRAMIDE HCL 5 MG/ML 2 ML VIAL IVP SCH ×3 (08:36→23:39)
[2023-02-13] MEDS: LevETIRAcetam 1,000 MG in DEXTROSE 5%-WATER 100 ML IV SCH ×2 (08:36→21:09)
[2023-02-13] MEDS: 1: MAGNESIUM SULFATE 2 GM, MVI, ADULT NO.1 WITH VIT K 10 ML, THIAMINE 100 MG, FOLIC ACID IV SCH ×5 (12:09)
[2023-02-13] MEDS: FentaNYL CIT 1000MCG/0.9% NACL 100 ML IV PRN ×3 (12:36→22:44)
[2023-02-13] MEDS ORDERED: LORazepam 2 MG/ML VIAL IVP ONE (21:00)
[2023-02-13] MEDS ORDERED: KETAMINE HCL 500 MG in DEXTROSE 5%-WATER 490 ML IV PRN (21:30)
[2023-02-14] VITALS (9 sets, daily range): BP systolic 116–138; BP diastolic 75–93; PULSE 48–78; RESP 12–20; TEMP 98.8–100; O2SAT 98–99
[2023-02-14] MEDS: DEXMEDETOMIDINE HCL 400 MCG in SODIUM CHLORIDE 0.9% 96 ML IV PRN ×4 (01:33→20:54)
[2023-02-14] MEDS ORDERED: SODIUM CHLORIDE 0.9% 1,000 ML ONE (01:55)
[2023-02-14] MEDS: 1: MAGNESIUM SULFATE 2 GM, MVI, ADULT NO.1 WITH VIT K 10 ML, THIAMINE 100 MG, FOLIC ACID IV SCH ×10 (01:56→17:14)
[2023-02-14] MEDS: PROPOFOL 1000 MG/ISO-OSM 100 ML IV PRN ×2 (01:57→05:40)
[2023-02-14] MEDS: MEROPENEM 1 GM in SODIUM CHLORIDE 0.9% 100 ML IV SCH ×3 (03:32→20:09)
[2023-02-14] MEDS: FentaNYL CIT 1000MCG/0.9% NACL 100 ML IV PRN (04:23)
[2023-02-14] MEDS: DEXAMETHASONE SOD PHOS 4 MG/ML VIAL IVP SCH ×3 (05:41→17:15)
[2023-02-14] MEDS: METOCLOPRAMIDE HCL 5 MG/ML 2 ML VIAL IVP SCH ×2 (08:00→16:00)
[2023-02-14] MEDS ORDERED: LORazepam 2 MG/ML VIAL IVP PRN (08:45)
[2023-02-14] MEDS: DOCUSATE SODIUM 100 MG/10 ML LIQUID UDCUP NG SCH ×2 (09:00→20:29)
[2023-02-14] MEDS: PANTOPRAZOLE SODIUM 40 MG/VIAL IVP SCH (09:32)
[2023-02-14] MEDS: LevETIRAcetam 1,000 MG in DEXTROSE 5%-WATER 100 ML IV SCH ×2 (09:33→20:54)
[2023-02-14 10:19] LABS: BASOPHILS % (AUTO) 0.3 % (0.0-2.0); EOSINOPHILS % (AUTO) 0 % (1.0-6.0); HEMOGLOBIN 10.7 g/dL (13.5-17.5); LYMPHOCYTES # (AUTO) 0.9 K/uL (1.0-4.8); LYMPHOCYTES % (AUTO) 6.8 % (22.0-44.0); MEAN CORPUSCULAR HEMOGLOBIN 28.9 pg (26.0-34.0); MEAN CORPUSCULAR HGB CONC 32.3 G/dL (31.0-37.0); MEAN CORPUSCULAR VOLUME 89 fL (80-100); MONOCYTES # (AUTO) 0.7 K/uL (0.1-1.0); MONOCYTES % (AUTO) 5.6 % (2.0-9.0); NEUTROPHILS # (AUTO) 10.9 K/uL (1.8-7.7); NEUTROPHILS % (AUTO) 87.3 % (40.0-70.0); PLATELET COUNT (AUTO) 669 K/uL (150-450); RED CELL DISTRIBUTION WIDTH 22.9 % (11.5-14.5)
[2023-02-14 10:34] LABS: ANION GAP 8 mmol/L (8-16); CALCIUM, TOTAL 8.8 mg/dL (8.8-10.5); CARBON DIOXIDE 29 mmol/L (22-29); CHLORIDE 101 mmol/L (98-107); CREATININE 0.38 mg/dL (0.60-1.30); GLOMERULAR FILTR. RATE CALC > 60 mL/min (>60); GLUCOSE,RANDOM 140 mg/dL (70-110); SODIUM SERUM 138 mmol/L (136-145)
[2023-02-15] VITALS (7 sets, daily range): BP systolic 118–138; BP diastolic 66–92; PULSE 56–81; RESP 14–26; TEMP 98.2–100.2
[2023-02-15] MEDS: DEXAMETHASONE SOD PHOS 4 MG/ML VIAL IVP SCH ×2 (00:13→05:42)
[2023-02-15] MEDS: MEROPENEM 1 GM in SODIUM CHLORIDE 0.9% 100 ML IV SCH ×3 (03:21→22:08)
[2023-02-15] MEDS: 1: MAGNESIUM SULFATE 2 GM, MVI, ADULT NO.1 WITH VIT K 10 ML, THIAMINE 100 MG, FOLIC ACID IV SCH ×5 (05:54)
[2023-02-15] MEDS: METOCLOPRAMIDE HCL 5 MG/ML 2 ML VIAL IVP SCH ×2 (08:00)
[2023-02-15] MEDS: DOCUSATE SODIUM 100 MG/10 ML LIQUID UDCUP NG SCH ×2 (09:16→21:00)
[2023-02-15] MEDS: LevETIRAcetam 1,000 MG in DEXTROSE 5%-WATER 100 ML IV SCH ×2 (09:17→21:20)
[2023-02-15] MEDS: PANTOPRAZOLE SODIUM 40 MG/VIAL IVP SCH (09:17)
[2023-02-15 11:48] LABS: BASOPHILS % (AUTO) 0.4 % (0.0-2.0); EOSINOPHILS % (AUTO) 0 % (1.0-6.0); HEMATOCRIT 33.9 % (41-53); LYMPHOCYTES # (AUTO) 1.2 K/uL (1.0-4.8); LYMPHOCYTES % (AUTO) 8.3 % (22.0-44.0); MEAN CORPUSCULAR HEMOGLOBIN 29.2 pg (26.0-34.0); MEAN CORPUSCULAR HGB CONC 32.6 G/dL (31.0-37.0); MEAN CORPUSCULAR VOLUME 90 fL (80-100); MONOCYTES # (AUTO) 0.9 K/uL (0.1-1.0); MONOCYTES % (AUTO) 6.6 % (2.0-9.0); NEUTROPHILS # (AUTO) 12.1 K/uL (1.8-7.7); NEUTROPHILS % (AUTO) 84.7 % (40.0-70.0); PLATELET COUNT (AUTO) 728 K/uL (150-450); RED BLOOD CELL COUNT(AUTO) 3.78 MIL/uL (4.50-5.90); RED CELL DISTRIBUTION WIDTH 22.3 % (11.5-14.5)
[2023-02-15 12:02] LABS: ANION GAP 4 mmol/L (8-16); CALCIUM, TOTAL 9.6 mg/dL (8.8-10.5); CARBON DIOXIDE 30 mmol/L (22-29); CHLORIDE 101 mmol/L (98-107); CREATININE 0.47 mg/dL (0.60-1.30); GLOMERULAR FILTR. RATE CALC > 60 mL/min (>60); GLUCOSE,RANDOM 106 mg/dL (70-110); POTASSIUM 3.8 mmol/L (3.5-5.1); SODIUM SERUM 135 mmol/L (136-145)
[2023-02-15] MEDS ORDERED: SODIUM CHLORIDE 0.9% 500 ML IV ONE (21:11)
[2023-02-15] MEDS: HYDROCODONE/ACETAMINOPHEN 5-325 MG TABLET PO PRN (22:11)
[2023-02-16] VITALS (7 sets, daily range): BP systolic 109–131; BP diastolic 59–78; PULSE 56–115; RESP 16–20; TEMP 98–98.7
[2023-02-16] MEDS: MEROPENEM 1 GM in SODIUM CHLORIDE 0.9% 100 ML IV SCH ×3 (05:31→20:24)
[2023-02-16] MEDS: PANTOPRAZOLE SODIUM 40 MG/VIAL IVP SCH (08:14)
[2023-02-16] MEDS: LevETIRAcetam 1,000 MG in DEXTROSE 5%-WATER 100 ML IV SCH ×2 (08:14→22:04)
[2023-02-16] MEDS: DOCUSATE SODIUM 100 MG/10 ML LIQUID UDCUP NG SCH ×2 (08:14→21:00)
[2023-02-16] MEDS: HYDROCODONE/ACETAMINOPHEN 5-325 MG TABLET PO PRN (20:24)
[2023-02-17] VITALS (9 sets, daily range): BP systolic 105–129; BP diastolic 56–75; PULSE 61–150; RESP 16–18; TEMP 98.7–99.1
[2023-02-17] MEDS: MEROPENEM 1 GM in SODIUM CHLORIDE 0.9% 100 ML IV SCH ×3 (04:09→19:55)
[2023-02-17] MEDS: DOCUSATE SODIUM 100 MG/10 ML LIQUID UDCUP NG SCH ×2 (08:47→21:35)
[2023-02-17] MEDS: PANTOPRAZOLE SODIUM 40 MG/VIAL IVP SCH (08:47)
[2023-02-17] MEDS: LevETIRAcetam 1,000 MG in DEXTROSE 5%-WATER 100 ML IV SCH ×2 (08:52→21:35)
[2023-02-18] MEDS: MEROPENEM 1 GM in SODIUM CHLORIDE 0.9% 100 ML IV SCH ×2 (03:36→12:32)
[2023-02-18 04:43] VITALS: BP 126/77; PULSE 83; RESP 18; TEMP 98.4
[2023-02-18 05:25] VITALS: PULSE 130
[2023-02-18 08:03] VITALS: BP 120/68; PULSE 79; RESP 18; TEMP 98
[2023-02-18] MEDS: LevETIRAcetam 1,000 MG in DEXTROSE 5%-WATER 100 ML IV SCH (10:05)
[2023-02-18] MEDS: PANTOPRAZOLE SODIUM 40 MG/VIAL IVP SCH (10:06)
[2023-02-18] MEDS: DOCUSATE SODIUM 100 MG/10 ML LIQUID UDCUP NG SCH (10:06)
[2023-02-18 11:17] VITALS: PULSE 68
[2023-02-18 12:23] VITALS: BP 121/82; PULSE 101; RESP 19; TEMP 98.2
[2023-02-18] MEDS ORDERED: NYSTATIN 500,000 UNITS/5 ML SUSPENSION UDCUP PO SCH (16:00)
== END 2023-02-18 15:27 | disposition home health service (06) | DRG 720 ==
LOC: EMS 09:07 → ICUN 19:00 → ICU 02-02 06:24 → 5S 02-15 18:25
PROVIDERS: ADMIT Hospitalist; ATTEND Hospitalist
PROC: 5A1955Z Respiratory Ventilation, Greater than 96 Consecutive Hours (ICD-10-PCS; principal; 2023-02-01)
PROC: 0BH17EZ Insertion of Endotracheal Airway into Trachea, Via Natural or Artificial Opening (ICD-10-PCS; 2023-02-01)
PROC: 0CQ7XZZ Repair Tongue, External Approach (ICD-10-PCS; 2023-02-01)
PROC: 0D9670Z Drainage of Stomach with Drainage Device, Via Natural or Artificial Opening (ICD-10-PCS; 2023-02-01)
DX: A41.9 Sepsis, unspecified organism (principal); J96.00 Acute respiratory failure, unspecified whether with hypoxia or hypercapnia; F10.231 Alcohol dependence with withdrawal delirium; K85.90 Acute pancreatitis without necrosis or infection, unspecified; E43 Unspecified severe protein-calorie malnutrition; E87.20 Acidosis, unspecified; N17.9 Acute kidney failure, unspecified; R56.9 Unspecified convulsions; D69.6 Thrombocytopenia, unspecified; Z20.822 Contact with and (suspected) exposure to COVID-19; E87.6 Hypokalemia; R74.01 Elevation of levels of liver transaminase levels; F10.229 Alcohol dependence with intoxication, unspecified; S01.512A Laceration without foreign body of oral cavity, initial encounter; D64.9 Anemia, unspecified; K70.30 Alcoholic cirrhosis of liver without ascites; D75.838 Other thrombocytosis; T78.3XXA Angioneurotic edema, initial encounter; Y83.8 Other surgical procedures as the cause of abnormal reaction of the patient, or of later complication, without mention of misadventure at the time of the procedure; K40.90 Unilateral inguinal hernia, without obstruction or gangrene, not specified as recurrent; X58.XXXA Exposure to other specified factors, initial encounter; Z79.899 Other long term (current) drug therapy; Z86.73 Personal history of transient ischemic attack (TIA), and cerebral infarction without residual deficits; Z87.891 Personal history of nicotine dependence; Y93.89 Activity, other specified; Y92.89 Other specified places as the place of occurrence of the external cause; Y99.8 Other external cause status; Z68.34 Body mass index [BMI] 34.0-34.9, adult
CPT/HCPCS: 36600; 70450; 70491; 71045; 71260; 72193; 74160; 80048; 80053; 80074; 80307; 81001; 82805; 83605; 83690; 84132; 84484; 85025; 85379; 85384; 85610; 85730; 87040; 87070; 87081; 87186; 87205; 92610; 93005; 94002; 94003; 97116; 97163; 97166; 97530; 97535; 99291; C9113; G0378; G0480; J0131; J0290; J0712; J1100; J1200; J2060; J2185; J2250; J2405; J2543; J2704; J2765; J2930; J3411; J3475; J3480; J3490; J7030; J7040; J7050; J7060; Q9967; 36415-L1; 36415-TC

== ENCOUNTER 2023-05-25 19:14 | Emergency (ER) | payer OTHER ==
[~2023-05-25] VITALS: Ht 175.3 cm; Wt 86.4 kg
[2023-05-25 19:38] VITALS: BP 124/79; PULSE 123; RESP 20; TEMP 98.9
== END 2023-05-25 22:12 | disposition left against medical advice (07) ==
LOC: EMS 19:24
DX: R56.9 Unspecified convulsions (principal); Z53.21 Procedure and treatment not carried out due to patient leaving prior to being seen by health care provider
CPT/HCPCS: 99281; Z7502